=== PATIENT | female | born 1980 | race Caucasian/White ===

== ENCOUNTER → 2017-05-15 | Outpatient (CLI) | payer BC ==
[2016-05-13 17:40] VITALS: BP 106/46
[~2017-05-15] MED LIST: CIPR500T94 PO; CRAN1CAP12 PO; HYDR-971 PO; INSU100I17 SQ; INSU100V13 SQ; LEVO1IUD IY; ONDA4TAB10 PO; TAMS0.4C97 PO; VITA1TAB3 PO
--- NOTE | 2017-05-15 13:53 | RAD ---
Left lower extremity venous ultrasound, 05/15/2017 : History: Left leg swelling Duplex evaluation including grayscale, color flow and spectral Doppler analysis was performed. The femoral and popliteal veins show no filling defects to suggest DVT. The visualized deep veins in the calves are unremarkable. Incidental note is made of superficial varices medially in the left calf. Significant left greater saphenous vein reflux is also noted. IMPRESSION: There is no sonographic evidence of deep vein thrombosis in the left lower extremity.
== END | disposition home or self-care (01) ==
LOC: US 12:43
PROVIDERS: ATTEND Family Medicine
DX: M79.89 Other specified soft tissue disorders (principal)
CPT/HCPCS: 93971

== ENCOUNTER → 2017-08-02 | Outpatient (CLI) | payer BC ==
[2016-05-13 17:40] VITALS: BP 106/46
--- NOTE | 2017-08-02 15:22 | RAD ---
Abdominal radiograph 08/02/2017 at 1513 hours Indication: History of kidney stones. Hematuria. Comparison: Acute abdominal series 12/25/2015 Technique: 2 supine views of abdomen are provided. Findings: Supine technique limits for for free intraperitoneal air. There is gas is prominence of small bowel loops measuring up to 3.1 cm in the left hemiabdomen. Fecal contents Limited evaluation for calculi along the renal shadows. No definite calculi are identified along the expected course of the ureters or urinary bladder. Suspected phleboliths are noted within the pelvis. Impression: 1. Moderate stool burden with mild gaseous prominence of small bowel loops may represent an ileus. 2. Fecal contents limit evaluation for renal calculi.
== END | disposition home or self-care (01) ==
LOC: DXRADRC 15:07
PROVIDERS: ATTEND Physician Assistant Medical
DX: R31.9 Hematuria, unspecified (principal); Z87.442 Personal history of urinary calculi
CPT/HCPCS: 74000

== ENCOUNTER 2017-11-03 11:18 | Emergency (ER) | payer BC ==
[2017-11-03] MEDS ORDERED: ONDANSETRON PF 4 MG/2 ML VIAL. ONE (11:37)
[2017-11-03] MEDS ORDERED: KETOROLAC 30 MG/ML VIAL. ONE (11:37)
[2017-11-03 11:56] LABS: BASO % 1 % (0-3); EOS # 0.1 x10^3/uL (0.0-0.7); EOS % 2 % (0-3); HEMATOCRIT 40.5 % (36.0-47.0); HEMOGLOBIN 13.9 g/dL (12.0-15.5); LYMPH # 2.5 x10^3/uL (1.0-4.8); LYMPH % 32 % (24-48); MEAN CORPUSCULAR HEMOGLOBIN 30 pg (25-35); MEAN CORPUSCULAR HGB CONC 34 g/dL (31-37); MEAN CORPUSCULAR VOLUME 87 fL (79-100); MONO # 0.4 x10^3/uL (0.0-1.1); MONO % 5 % (0-9); NEUT # 4.6 x10^3uL (1.8-7.7); NEUT % 60 % (31-73); PLATELET COUNT 213 x10^3/uL (140-400); RED BLOOD COUNT 4.63 x10^6/uL (3.50-5.40); WHITE BLOOD COUNT 7.6 x10^3/uL (4.0-11.0)
[2017-11-03] MEDS ORDERED: KETOROLAC 60 MG/2 ML VIAL. IM ONE (12:00)
[2017-11-03] MEDS ORDERED: ONDANSETRON ODT 4 MG TAB.RAPDIS PO ONE (12:00)
[2017-11-03] MEDS ORDERED: IV NORMAL SALINE 1,000ML 1,000 ML IV ONE (12:00)
[2017-11-03 12:04] LABS: ALBUMIN 3.7 g/dL (3.4-5.0); CALCIUM 8.9 mg/dL (8.5-10.1); CREATININE 0.8 mg/dL (0.6-1.0); GFR 79.9; MAGNESIUM 1.9 mg/dL (1.8-2.4); POTASSIUM 4.2 mmol/L (3.5-5.1); TOTAL BILIRUBIN 0.3 mg/dL (0.2-1.0); TOTAL PROTEIN 7.5 g/dL (6.4-8.2)
[2017-11-03] MEDS ORDERED: KETOROLAC 30 MG/ML VIAL. IV ONE (12:15)
[2017-11-03 12:42] LABS: BILIRUBIN,URINE NEG (NEG); CLARITY,URINE CLOUDY; COLOR,URINE AMBER; GLUCOSE,URINE NEG (NEG)
[2017-11-03 12:43] LABS: BACTERIA,URINE FEW /HPF (0-FEW); NITRITE,URINE NEG (NEG); RBC,URINE >40 /HPF (0-2); SQUAMOUS EPITHELIAL CELL,UR OCC /LPF; UROBILINOGEN,URINE 0.2 mg/dL (0.2 mg/dL)
[2017-11-03] MEDS ORDERED: ONDANSETRON PF 4 MG/2 ML VIAL. IV ONE (12:45)
[2017-11-03 12:50] VITALS: BP 106/59
--- NOTE | 2017-11-03 13:01 | PHYS DOC ---
Past History Past Medical History: Kidney Stones, Ovarian Cyst Past Surgical History: Tubal ligation, Other Smoking: Non-smoker Alcohol Use: Occasionally Drug Use: None Adult General Chief Complaint Chief Complaint: FLANK PAIN HPI HPI Patient is a 37 year old F who presents with constant sharp right-sided flank pain radiating to her abdomen. She does have a history of polycystic ovarian disease and kidney stones. She also has known kidney stones that have not descended. She does not feel like her symptoms are waxing and waning. She denies urinary symptoms. She had a bowel movement during this pain which did not relieve her symptoms and was noted to be normal volume and normal consistency. She has no other associated symptoms. She has no other exacerbating or alleviating factors. Review of Systems Review of Systems Constitutional: Denies fever or chills [] Eyes: Denies change in visual acuity, redness, or eye pain [] HENT: Denies nasal congestion or sore throat [] Respiratory: Denies cough or shortness of breath [] Cardiovascular: No additional information not addressed in HPI [] GI: Denies nausea, vomiting, bloody stools or diarrhea [] : Denies dysuria or hematuria [] Musculoskeletal: Denies back pain or joint pain [] Integument: Denies rash or skin lesions [] Neurologic: Denies headache, focal weakness or sensory changes [] Endocrine: Denies polyuria or polydipsia [] All other systems were reviewed and found to be within normal limits, except as documented in this note. Family History Family History No pertinent family medical history reported Current Medications Current Medications Current medications were reviewed Current Medications Medications (Trade) Dose Ordered [facility] Start Time Stop Time Status Last Admin Dose Admin Ketorolac Tromethamine (Toradol) 30 mg 1X ONCE 11/03/17 12:15 11/03/17 12:19 DC 11/03/17 11:40 30 MG Ondansetron HCl (Zofran Odt) 4 mg 1X ONCE 11/03/17 12:00 11/03/17 12:01 DC Ondansetron HCl (Zofran) 4 mg 1X ONCE 11/03/17 12:45 11/03/17 12:46 DC 11/03/17 11:40 4 MG Sodium Chloride 1,000 ml @ 1,000 mls/hr 1X ONCE 11/03/17 12:00 11/03/17 12:59 11/03/17 11:40 1,000 MLS/HR Allergies Allergies Allergies Coded Allergies Type Severity Reaction Last Updated Verified Penicillins Allergy Unknown 05/15/17 Yes aspirin Allergy Unknown 05/15/17 Yes iodine Allergy Unknown 05/15/17 Yes Physical Exam Physical Exam Constitutional: Well developed, well nourished, non-toxic appearance. [] Mild distress initially. HENT: Normocephalic, atraumatic, bilateral external ears normal, oropharynx moist, no oral exudates, nose normal. [] Eyes: EOMI, conjunctiva normal, no discharge. [] Neck: Normal range of motion, no tenderness, supple, no stridor. [] Cardiovascular:Heart rate regular rhythm, no murmur [] Lungs & Thorax: Bilateral breath sounds clear to auscultation [] Abdomen: Bowel sounds normal, soft, no masses, no pulsatile masses. [] Mild tenderness to palpation in the right lower quadrant. Skin: Warm, dry, no erythema, no rash. [] Back: Mild right-sided flank pain Extremities: No tenderness, no cyanosis, no clubbing, ROM intact, no edema. [] Neurologic: Alert and oriented X 3, normal motor function, normal sensory function, no focal deficits noted. [] Psychologic: Affect normal, judgement normal, mood normal. [] Current Patient Data Vital Signs Vital Signs Date Time Temp Pulse Resp B/P (MAP) Pulse Ox O2 Delivery O2 Flow Rate FiO2 11/03/17 11:25 97.8 80 16 100 Room Air Lab Results Laboratory Tests Test 11/03/17 11:30 11/03/17 12:10 White Blood Count 7.6 x10^3/uL (4.0-11.0) Red Blood Count 4.63 x10^6/uL (3.50-5.40) Hemoglobin 13.9 g/dL (12.0-15.5) Hematocrit 40.5 % (36.0-47.0) Mean Corpuscular Volume 87 fL (79-100) Mean Corpuscular Hemoglobin 30 pg (25-35) Mean Corpuscular Hemoglobin Concent 34 g/dL (31-37) Red Cell Distribution Width 13.0 % (11.5-14.5) Platelet Count 213 x10^3/uL (140-400) Neutrophils (%) (Auto) 60 % (31-73) Lymphocytes (%) (Auto) 32 % (24-48) Monocytes (%) (Auto) 5 % (0-9) Eosinophils (%) (Auto) 2 % (0-3) Basophils (%) (Auto) 1 % (0-3) Neutrophils # (Auto) 4.6 x10^3uL (1.8-7.7) Lymphocytes # (Auto) 2.5 x10^3/uL (1.0-4.8) Monocytes # (Auto) 0.4 x10^3/uL (0.0-1.1) Eosinophils # (Auto) 0.1 x10^3/uL (0.0-0.7) Basophils # (Auto) 0.0 x10^3/uL (0.0-0.2) Sodium Level 142 mmol/L (136-145) Potassium Level 4.2 mmol/L (3.5-5.1) Chloride Level 106 mmol/L (98-107) Carbon Dioxide Level 25 mmol/L (21-32) Anion Gap 11 (6-14) Blood Urea Nitrogen 15 mg/dL (7-20) Creatinine 0.8 mg/dL (0.6-1.0) Estimated GFR (Cockcroft-Gault) 79.9 BUN/Creatinine Ratio 19 (6-20) Glucose Level 129 mg/dL (70-99) H Calcium Level 8.9 mg/dL (8.5-10.1) Magnesium Level 1.9 mg/dL (1.8-2.4) Total Bilirubin 0.3 mg/dL (0.2-1.0) Aspartate Amino Transferase (AST) 12 U/L (15-37) L Alanine Aminotransferase (ALT) 19 U/L (14-59) Alkaline Phosphatase 31 U/L (46-116) L Total Protein 7.5 g/dL (6.4-8.2) Albumin 3.7 g/dL (3.4-5.0) Albumin/Globulin Ratio 1.0 (1.0-1.7) Urine Collection Type Unknown Urine Color [place] Urine Clarity Cloudy Urine pH 7.0 Urine Specific [place] 1.025 Urine Protein >100 mg/dl (NEG-TRACE) Urine Glucose (UA) Neg mg/dL (NEG) Urine Ketones (Stick) 15 mg/dL (NEG) Urine Blood Large (NEG) Urine Nitrite Neg (NEG) Urine Bilirubin Neg (NEG) Urine Urobilinogen Dipstick 0.2 mg/dL (0.2 mg/dL) Urine Leukocyte Esterase Trace (NEG) Urine RBC >40 /HPF (0-2) Urine WBC 1-4 /HPF (0-4) Urine Squamous Epithelial Cells Occ /LPF Urine Bacteria Few /HPF (0-FEW) Urine Mucus Slight /LPF EKG EKG [] Radiology/Procedures Radiology/Procedures Imaging was declined Course & Med Decision Making Course & Med Decision Making Pertinent Labs and Imaging studies reviewed. (See chart for details) [] Dragon Disclaimer Dragon Disclaimer This electronic medical record was generated, in whole or in part, using a voice recognition dictation system. Departure Departure: Impression: Primary Impression: Abdominal pain Disposition: HOME, SELF-CARE Condition: STABLE Referrals: JASMEET MARQUEZ MD (PCP) Patient Instructions: Abdominal Pain Additional Instructions: Melissa was seen in the ED for abdominal pain. No emergency medical condition was found during history and physical exam. She did have normal labs. She was advised to return to the ED if she develops new or worsening symptoms. She was also advised to follow up with her primary care doctor as needed for further management. Problem Qualifiers Primary Impression: Abdominal pain Abdominal location: unspecified location Qualified Codes: R10.9 - Unspecified abdominal pain ROSSY GUSTAFSON MD Nov 03, 2017 13:01
== END 2017-11-03 13:05 | disposition home or self-care (01) ==
LOC: ER 11:18
DX: R10.31 Right lower quadrant pain (principal); Z87.442 Personal history of urinary calculi; E28.2 Polycystic ovarian syndrome; Z88.0 Allergy status to penicillin; Z88.6 Allergy status to analgesic agent; Z91.041 Radiographic dye allergy status
CPT/HCPCS: 36415; 80053; 81001; 83735; 85025; 87086; 96361; 96374; 96375; 99284; J1885; J2405; J7030

== ENCOUNTER → 2018-08-11 | Outpatient (CLI) | payer BC ==
--- NOTE | 2018-08-11 09:17 | RAD ---
EXAM: Left hand, 3 views. HISTORY: Pain status post fall. COMPARISON: None. FINDINGS: 3 views of the left hand are obtained. There is no fracture, dislocation or subluxation. There are tiny ossicles along the palmar aspect of the third proximal interphalangeal joint and adjacent to the triquetrum. These are likely developmental or the sequela of remote injury. IMPRESSION: No acute osseous finding. Electronically signed by: Consuelo Lund MD (08/11/2018 9:14 AM) [place] [id number]
== END | disposition home or self-care (01) ==
LOC: DXRAD 08:27
PROVIDERS: ATTEND Physician Assistant Medical
DX: M79.642 Pain in left hand (principal); Z88.0 Allergy status to penicillin; Z88.8 Allergy status to other drugs, medicaments and biological substances; Z88.6 Allergy status to analgesic agent; Z87.442 Personal history of urinary calculi; Z80.3 Family history of malignant neoplasm of breast
CPT/HCPCS: 73130

== ENCOUNTER → 2018-10-01 | Outpatient (CLI) | payer BC ==
--- NOTE | 2018-10-01 09:48 | RAD ---
DATE: 10/01/2018 EXAM: MAMMO NADINE SCREENING BILATERAL HISTORY: Routine screening COMPARISON: 06/29/2016 This study was interpreted with the benefit of Computerized Aided Detection (CAD). Breast Density: HETERO The breast parenchyma is heterogenously dense, which could reduce sensitivity of mammography. Breast parenchyma level C. FINDINGS: 2-D and 3-D tomosynthesis imaging was performed in CC and MLO projections. There is a cluster of benign-appearing lymph node type densities in the axillary tail region of the left breast. No new or enlarging breast densities are seen. Minimal benign type calcifications are present. No suspicious microcalcifications have developed. IMPRESSION: There is no mammographic evidence of malignancy in either breast. BI-RADS CATEGORY: 2 BENIGN FINDING(S) RECOMMENDED FOLLOW-UP: 12M 12 MONTH FOLLOW-UP PQRS compliance statement: Patient information was entered into a reminder system with a target due date for the next mammogram. Mammography is a sensitive method for finding small breast cancers, but it does not detect them all and is not a substitute for careful clinical examination. A negative mammogram does not negate a clinically suspicious finding and should not result in delay in biopsying a clinically suspicious abnormality. "Our facility is accredited by the [employer] Mammography Program."
== END | disposition home or self-care (01) ==
LOC: MAMMO 07:55
PROVIDERS: ATTEND Physician Assistant Medical
DX: Z12.31 Encounter for screening mammogram for malignant neoplasm of breast (principal)
CPT/HCPCS: 77063; 77067

== ENCOUNTER 2018-11-02 21:46 | Emergency (ER) | payer BC ==
[~2018-11-02] VITALS: Ht 172.7 cm; Wt 98.2 kg
[~2018-11-02 21:46] MED LIST changes: +HYDR-3165 PO; -HYDR-971 PO; -LEVO1IUD IY; +LEVO1IUD3 IY
[2018-11-02] MEDS ORDERED: KETOROLAC 30 MG/ML VIAL. IV ONE (22:00)
[2018-11-02] MEDS ORDERED: KETOROLAC 30 MG/ML VIAL. ONE (22:10)
[2018-11-02 22:26] LABS: BASO % 0 % (0-3); EOS # 0.1 x10^3/uL (0.0-0.7); EOS % 2 % (0-3); HEMATOCRIT 38.9 % (36.0-47.0); HEMOGLOBIN 13.2 g/dL (12.0-15.5); LYMPH # 1.5 x10^3/uL (1.0-4.8); LYMPH % 29 % (24-48); MEAN CORPUSCULAR HEMOGLOBIN 30 pg (25-35); MEAN CORPUSCULAR HGB CONC 34 g/dL (31-37); MEAN CORPUSCULAR VOLUME 89 fL (79-100); MONO # 0.4 x10^3/uL (0.0-1.1); MONO % 8 % (0-9); NEUT # 3.1 x10^3uL (1.8-7.7); NEUT % 61 % (31-73); PLATELET COUNT 193 x10^3/uL (140-400); RED BLOOD COUNT 4.38 x10^6/uL (3.50-5.40); RED CELL DISTRIBUTION WIDTH 13.2 % (11.5-14.5); WHITE BLOOD COUNT 5.1 x10^3/uL (4.0-11.0)
[2018-11-02] MEDS ORDERED: ONDANSETRON PF 4 MG/2 ML VIAL. IV ONE (22:30)
[2018-11-02] MEDS ORDERED: IV RINGERS SOLUTION,LACTATED 1,000 ML IV SCH (22:30)
[2018-11-02] MEDS ORDERED: FAMOTIDINE 20 MG/2 ML VIAL IVP ONE (22:30)
--- NOTE | 2018-11-02 22:35 | RAD ---
Abdominal and Pelvis CT, Without Contrast: History: Right flank pain. Comparison: None. Procedure: Axial images are obtained of the abdomen and pelvis, without IV or oral contrast. CT Abdomen without Contrast: Findings: Evaluation of solid organs is limited without contrast. Evaluation of stomach and bowel is limited without oral contrast. Liver: Normal. Spleen: Normal. Pancreas: Normal. Adrenal Glands: Normal. Kidneys: There is moderate right hydronephrosis secondary to a 17 mm stone at the UPJ. There are additional tiny nonobstructive stones the renal pelvises bilaterally. There is no free air or free fluid. There is no lymphadenopathy. Impression: Please see CT Pelvis without Contrast. End Impression. CT Pelvis without Contrast: Findings: The urinary bladder is collapsed. There is a trace of free fluid. There is no lymphadenopathy. There is no pericolonic inflammation identified. The appendix is normal. Impression: Moderate right hydronephrosis secondary to 17 mm stone at the right UPJ. End impression PQRS Compliance Statement: One or more of the following individualized dose reduction techniques were utilized for this examination: 1. Automated exposure control 2. Adjustment of the mA and/or kV according to patient size 3. Use of iterative reconstruction technique Electronically signed by: Norman Kirby III, MD (11/02/2018 10:31 PM) [id number]
[2018-11-02 22:41] LABS: BARBITURATES NEG (NEG); BENZODIAZEPINES NEG (NEG); CANNABINOIDS NEG (NEG); COCAINE NEG (NEG); METHADONE NEG (NEG); OPIATES NEG (NEG); PHENCYCLIDINE NEG (NEG)
[2018-11-02 22:42] LABS: AMPHETAMINE/METHAMPHETAMINE NEG (NEG)
[2018-11-02 22:43] LABS: ALBUMIN 3.6 g/dL (3.4-5.0); CALCIUM 8.8 mg/dL (8.5-10.1); CREATININE 0.9 mg/dL (0.6-1.0); DIRECT BILIRUBIN 0.1 mg/dL (0.0-0.2); GFR 69.3; POTASSIUM 3.4 mmol/L (3.5-5.1); TOTAL BILIRUBIN 0.4 mg/dL (0.2-1.0); TOTAL PROTEIN 7.7 g/dL (6.4-8.2)
[2018-11-02 22:55] LABS: BACTERIA,URINE FEW /HPF (0-FEW); BILIRUBIN,URINE NEG (NEG); CLARITY,URINE HAZY; COLOR,URINE YELLOW; GLUCOSE,URINE NEG (NEG); NITRITE,URINE NEG (NEG); RBC,URINE TNTC /HPF (0-2); SQUAMOUS EPITHELIAL CELL,UR OCC /LPF; UROBILINOGEN,URINE 0.2 mg/dL (0.2 mg/dL)
[2018-11-02 23:30] VITALS: BP 125/72
[2018-11-03] MEDS ORDERED: HYDR-1179 PO (00:03)
[2018-11-03] MEDS ORDERED: ONDA8TAB9 PO (00:03)
--- NOTE | 2018-11-03 00:15 | ED.ADGEN ---
Past History Past Medical History: Kidney Stones, Ovarian Cyst Past Surgical History: Tubal ligation, Other Smoking: Non-smoker Alcohol Use: Occasionally Drug Use: None Adult General Chief Complaint Chief Complaint ". I ve had kidney stones before..but never had this much pain.. and this much discoloration in urine... " HPI HPI Patient is a 38 year old female who presents with Rt. flank abd. pain and hematuria. Pt. has hx of multiple kidney stones over the years and prior lithotripsy. Patient has currently pain that radiates to her groin. No history of vaginal discharge. No history of trauma. No history immunosuppression. No history of travel. Pt. denies intake of bad food. Pt. has had gastric sleeve for wt. loss. Pt. also has past hx of ovarian cysts. Review of Systems Review of Systems Constitutional: Denies fever or chills [] Eyes: Denies change in visual acuity, redness, or eye pain [] HENT: Denies nasal congestion or sore throat [] Respiratory: Denies cough or shortness of breath [] Cardiovascular: No additional information not addressed in HPI [] GI: Complaints of right flank abdominal pain, nausea. Denies, vomiting, bloody stools or diarrhea [] : Denies dysuria or hematuria [] Musculoskeletal: Right flank back pain . Integument: Denies rash or skin lesions [] Neurologic: Denies headache, focal weakness or sensory changes [] Endocrine: Denies polyuria or polydipsia [] All other systems were reviewed and found to be within normal limits, except as documented in this note. Family History Family History Noncontributory Current Medications Current Medications Current Medications Medications (Trade) Dose Ordered Sig/Dian Start Time Stop Time Status Last Admin Dose Admin Famotidine (Pepcid Vial) 20 mg 1X ONCE 11/02/18 22:30 11/02/18 22:31 DC 11/02/18 22:29 20 MG Ketorolac Tromethamine (Toradol 30mg Vial) 30 mg 1X ONCE 11/02/18 22:00 11/02/18 22:01 UNV 11/02/18 22:29 30 MG Lactated Ringer's 1,000 ml @ 1,000 mls/hr Q1H 11/02/18 22:30 11/02/18 23:29 DC 11/02/18 22:05 1,000 MLS/HR Ondansetron HCl (Zofran) 8 mg 1X ONCE 11/02/18 22:30 11/02/18 22:31 DC 11/02/18 22:29 8 MG Allergies Allergies Allergies Coded Allergies Type Severity Reaction Last Updated Verified Penicillins Allergy Unknown 05/15/17 Yes aspirin Allergy Unknown 05/15/17 Yes iodine Allergy Unknown 05/15/17 Yes Physical Exam Physical Exam Constitutional: Moderately acute distress, non-toxic appearance. [] HENT: Normocephalic, atraumatic, bilateral external ears normal, oropharynx moist, no oral exudates, nose normal. [] Eyes: PERRLA, EOMI, conjunctiva normal, no discharge. Glasses Neck: Normal range of motion, no tenderness, supple, no stridor. [] Cardiovascular:Heart rate regular rhythm, no murmur [] Lungs & Thorax: Bilateral breath sounds clear to auscultation [] Abdomen: Bowel sounds decreased, soft, right lower abdomen and flank tenderness , no masses, no pulsatile masses. [] Old surgical scar Skin: Warm, dry, no erythema, no rash. [] Back: No tenderness, right CVA tenderness. [] Extremities: No tenderness, no cyanosis, no clubbing, ROM intact, no edema. [] No psoas sign or heeltap on right Neurologic: Alert and oriented X 3, normal motor function, normal sensory function, no focal deficits noted. [] Psychologic: Affect anxious, judgement normal, mood normal. [] Current Patient Data Vital Signs Vital Signs Date Time Temp Pulse Resp B/P (MAP) Pulse Ox O2 Delivery O2 Flow Rate FiO2 11/02/18 21:51 98.2 18 20 100 Room Air Lab Results Laboratory Tests Test 11/02/18 21:51 11/02/18 22:00 11/02/18 22:11 White Blood Count 5.1 x10^3/uL (4.0-11.0) Red Blood Count 4.38 x10^6/uL (3.50-5.40) Hemoglobin 13.2 g/dL (12.0-15.5) Hematocrit 38.9 % (36.0-47.0) Mean Corpuscular Volume 89 fL (79-100) Mean Corpuscular Hemoglobin 30 pg (25-35) Mean Corpuscular Hemoglobin Concent 34 g/dL (31-37) Red Cell Distribution Width 13.2 % (11.5-14.5) Platelet Count 193 x10^3/uL (140-400) Neutrophils (%) (Auto) 61 % (31-73) Lymphocytes (%) (Auto) 29 % (24-48) Monocytes (%) (Auto) 8 % (0-9) Eosinophils (%) (Auto) 2 % (0-3) Basophils (%) (Auto) 0 % (0-3) Neutrophils # (Auto) 3.1 x10^3uL (1.8-7.7) Lymphocytes # (Auto) 1.5 x10^3/uL (1.0-4.8) Monocytes # (Auto) 0.4 x10^3/uL (0.0-1.1) Eosinophils # (Auto) 0.1 x10^3/uL (0.0-0.7) Basophils # (Auto) 0.0 x10^3/uL (0.0-0.2) Prothrombin Time 9.3 SEC (9.4-11.4) L Prothrombin Time INR 0.9 (0.9-1.1) PTT 25 SEC (23-33) Sodium Level 138 mmol/L (136-145) Potassium Level 3.4 mmol/L (3.5-5.1) L Chloride Level 101 mmol/L (98-107) Carbon Dioxide Level 25 mmol/L (21-32) Anion Gap 12 (6-14) Blood Urea Nitrogen 20 mg/dL (7-20) Creatinine 0.9 mg/dL (0.6-1.0) Estimated GFR (Cockcroft-Gault) 69.3 Glucose Level 92 mg/dL (70-99) Calcium Level 8.8 mg/dL (8.5-10.1) Total Bilirubin 0.4 mg/dL (0.2-1.0) Direct Bilirubin 0.1 mg/dL (0.0-0.2) Aspartate Amino Transferase (AST) 14 U/L (15-37) L Alanine Aminotransferase (ALT) 20 U/L (14-59) Alkaline Phosphatase 35 U/L (46-116) L Troponin I Quantitative < 0.017 ng/mL (0-0.055) Total Protein 7.7 g/dL (6.4-8.2) Albumin 3.6 g/dL (3.4-5.0) Amylase Level 73 U/L (25-115) Lipase 174 U/L (73-393) Urine Opiates Screen Neg (NEG) Urine Methadone Screen Neg (NEG) Urine Barbiturates Neg (NEG) Urine Phencyclidine Screen Neg (NEG) Urine Amphetamine/Methamphetamine Neg (NEG) Urine Benzodiazepines Screen Neg (NEG) Urine Cocaine Screen Neg (NEG) Urine Cannabinoids Screen Neg (NEG) Urine Ethyl Alcohol Neg (NEG) Urine Collection Type Unknown Urine Color Yellow Urine Clarity Hazy Urine pH 6.0 Urine Specific [place] >=1.030 Urine Protein 100 mg/dl (NEG-TRACE) Urine Glucose (UA) Neg mg/dL (NEG) Urine Ketones (Stick) 40 mg/dL (NEG) Urine Blood Large (NEG) Urine Nitrite Neg (NEG) Urine Bilirubin Neg (NEG) Urine Urobilinogen Dipstick 0.2 mg/dL (0.2 mg/dL) Urine Leukocyte Esterase Neg (NEG) Urine RBC Tntc /HPF (0-2) Urine WBC 1-4 /HPF (0-4) Urine Squamous Epithelial Cells Occ /LPF Urine Bacteria Few /HPF (0-FEW) Urine Mucus Slight /LPF POC Urine HCG, Qualitative hcg negative (Negative) EKG EKG [] Radiology/Procedures Radiology/Procedures My interpretation acute abdomen film shows what appears to be a large renal stone. Nonspecific bowel gas pattern. Nonobstructive appearance.. My interpretation of CT of abdomen shows a large renal stone approximately 17 mm with hydronephrosis. See formal report when available. No obvious findings of appendicitis.[] Course & Med Decision Making Course & Med Decision Making Pertinent Labs and Imaging studies reviewed. (See chart for details). Discussed presentation, testing and treatment plan with - Urology and Pt. Pt. elects to try go home and call Dr. Steinberg in [place]. Take Percocet for pain. Take Zofran for nausea. Clear fluid diet for the next 48 hours. Return if any concerns. [phone]. [] Final Impression Final Impression 1. Renal colic 2. Renal stone 3. Hematuria[] Dragon Disclaimer Dragon Disclaimer This electronic medical record was generated, in whole or in part, using a voice recognition dictation system. ANNEMARIE BAHENA MD Nov 03, 2018 00:15
[2018-11-03] MEDS ORDERED: OXYC1TAB15 PO (00:17)
--- NOTE | 2018-11-03 07:49 | RAD ---
2 view abdominal series and PA view chest x-ray Clinical indications: Right flank pain with hematuria. History kidney stones. COMPARISON: August 02, 2017 KUB. FINDINGS: No bowel obstruction or air-fluid levels or free intraperitoneal air is seen. There is a large radiopaque stone involving the proximal right ureter at the level of the right L2 transverse process. This measures 15 mm in size. This corresponds to the CT finding. Small punctate radiopaque stones of the lower pole of the left kidney are seen. Calcified phlebolith of the right side of the anatomic pelvis is seen. The osseous structures appear intact. Chest x-ray demonstrates no acute lung infiltrate or pleural effusion or pulmonary edema or pneumothorax. The heart size and pulmonary vasculature and mediastinum and both satinder are unremarkable. IMPRESSION: 15 mm radiopaque stone within the proximal right ureter. Electronically signed by: Tan Branham MD (11/03/2018 7:46 AM) [facility]
== END 2018-11-03 00:10 | disposition home or self-care (01) ==
LOC: ER 21:46
DX: N13.2 Hydronephrosis with renal and ureteral calculous obstruction (principal); Z87.440 Personal history of urinary (tract) infections; Z98.51 Tubal ligation status; Z88.0 Allergy status to penicillin; Z88.6 Allergy status to analgesic agent; Z91.041 Radiographic dye allergy status
CPT/HCPCS: 36415; 74022; 74176; 80048; 80076; 80307; 81001; 81025; 82150; 83690; 84484; 85025; 85610; 85730; 96374; 96375; 99284; J1885; J2405; J3490; J7120; 96361

== ENCOUNTER → 2019-12-02 | Outpatient (CLI) | payer BC ==
[~2019-12-02] MED LIST changes: +HYDR-1179 PO; +ONDA8TAB9 PO; +OXYC1TAB15 PO
[2019-12-02 08:55] LABS: BASO % 1 % (0-3); EOS # 0.1 x10^3/uL (0.0-0.7); EOS % 2 % (0-3); HEMATOCRIT 41.3 % (36.0-47.0); LYMPH # 2.1 x10^3/uL (1.0-4.8); LYMPH % 34 % (24-48); MEAN CORPUSCULAR HEMOGLOBIN 30 pg (25-35); MEAN CORPUSCULAR HGB CONC 34 g/dL (31-37); MEAN CORPUSCULAR VOLUME 90 fL (79-100); MONO # 0.4 x10^3/uL (0.0-1.1); MONO % 6 % (0-9); NEUT # 3.6 x10^3uL (1.8-7.7); NEUT % 58 % (31-73); PLATELET COUNT 197 x10^3/uL (140-400); RED CELL DISTRIBUTION WIDTH 13.2 % (11.5-14.5); WHITE BLOOD COUNT 6.3 x10^3/uL (4.0-11.0)
[2019-12-02 09:06] LABS: ALBUMIN 3.7 g/dL (3.4-5.0); ALBUMIN/GLOBULIN RATIO 0.9 (1.0-1.7); CALCIUM 9.1 mg/dL (8.5-10.1); CREATININE 1.1 mg/dL (0.6-1.0); GFR 54.7; POTASSIUM 3.8 mmol/L (3.5-5.1); TOTAL BILIRUBIN 0.5 mg/dL (0.2-1.0); TOTAL PROTEIN 7.9 g/dL (6.4-8.2)
[2019-12-02 20:12] LABS: FREE T4 0.98 ng/dL (0.76-1.46); THYROID STIM HORMONE (TSH) 2.824 uIU/mL (0.358-3.740)
== END | disposition home or self-care (01) ==
LOC: LAB 08:39
PROVIDERS: ATTEND Physician Assistant Medical
DX: Z00.00 Encounter for general adult medical examination without abnormal findings (principal); R53.83 Other fatigue
CPT/HCPCS: 36415; 80053; 80061; 82607; 84439; 84443; 84481; 85025

== ENCOUNTER → 2020-07-11 | Outpatient (CLI) | payer BC ==
--- NOTE | 2020-07-11 09:41 | RAD ---
PQRS Compliance Statement: One or more of the following individualized dose reduction techniques were utilized for this examination: 1. Automated exposure control 2. Adjustment of the mA and/or kV according to patient size 3. Use of iterative reconstruction technique CT ABDOMEN PELVIS WO CONTRAST Clinical Indication: Reason: UPPER ABD PAIN RADIATING TO LLQ SINCE SATURDAY Comparison: CT abdomen and pelvis without contrast, 12 08/14/2018. Technique: Helical CT imaging of the abdomen and pelvis is performed without IV or oral contrast. Findings: Evaluation of solid organs and bowel is limited without oral and IV contrast, decreasing sensitivity for detection of pathology. The lung bases are clear. The cardiac size is normal. Subcentimeter right cardiophrenic lymph node is stable. The liver, gallbladder, spleen, pancreas, adrenal glands, and abdominal aorta caliber are normal. There are at least 3 nonobstructing right renal calculi. The largest measures 3 mm in the lower pole. There is no ureteral calculus. No right hydronephrosis. There are at least 5 nonobstructing left renal calculi, largest measures 7 mm. There is no left hydronephrosis. There is no left ureteral calculus. Redemonstrated postsurgical change of the stomach. No dilated small bowel. The appendix is normal. There are a couple of subcentimeter pericecal lymph nodes. Portions of the colon are decompressed, limiting evaluation. Cannot exclude mild wall thickening of colon at the splenic flexure. There is minimal induration in the associated mesentery, for example image 31. No other colon wall thickening is seen. No abdominal adenopathy or free fluid. Uterus and left ovary are unremarkable. Right ovary not definitely seen. Urinary bladder is not well distended, otherwise normal. There is a lucent contraceptive ring in the vagina. There is no pelvic free fluid. 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 Mild endplate spurring thoracolumbar spine. IMPRESSION: 1. There is mild induration adjacent to the colon at the splenic flexure. This segment of colon is not well distended accentuating the wall thickness. Cannot exclude a focal mild colitis, probably infectious or inflammatory, ischemic less likely. 2. Bilateral nonobstructing renal calculi. Electronically signed by: Dalton Saha MD (07/11/2020 9:38 AM) [id number]
== END | disposition home or self-care (01) ==
LOC: PMG 08:39
PROVIDERS: ATTEND Physician Assistant Medical
DX: N20.0 Calculus of kidney (principal); M46.05 Spinal enthesopathy, thoracolumbar region; R10.9 Unspecified abdominal pain
CPT/HCPCS: 74176

== ENCOUNTER → 2021-03-03 | Outpatient (CLI) | payer BC ==
--- NOTE | 2021-03-03 15:02 | RAD ---
DATE: 03/03/2021 EXAM: MAMMO NADINE SCREENING BILATERAL HISTORY: Screening COMPARISON: 10/01/2018, 06/29/2016 This study was interpreted with the benefit of Computerized Aided Detection (CAD). Breast Density: HETERO The breast parenchyma is heterogenously dense, which could reduce sensitivity of mammography. Breast parenchyma level C. FINDINGS: Intramammary lymph nodes in the upper outer left breast are unchanged No suspicious mass, calcifications, or architectural distortion in either breast. IMPRESSION: No evidence of malignancy. BI-RADS CATEGORY: 1 NEGATIVE RECOMMENDED FOLLOW-UP: 12M 12 MONTH FOLLOW-UP PQRS compliance statement: Patient information was entered into a reminder system with a target due date for the next mammogram. Mammography is a sensitive method for finding small breast cancers, but it does not detect them all and is not a substitute for careful clinical examination. A negative mammogram does not negate a clinically suspicious finding and should not result in delay in biopsying a clinically suspicious abnormality. "Our facility is accredited by the [employer] Mammography Program."
== END ==
LOC: MAMMO 11:28
PROVIDERS: ATTEND Physician Assistant Medical
DX: Z12.31 Encounter for screening mammogram for malignant neoplasm of breast (principal)
CPT/HCPCS: 77063; 77067